=== PATIENT | male | born 1985 | race Caucasian/White ===

== ENCOUNTER 2022-08-31 06:50 | Emergency (ER) | payer MEDICAID, OTHER ==
[~2022-08-31] VITALS: Ht 185.4 cm; Wt 127.0 kg
[2022-08-31 06:50] VITALS: BP_SYST 142; BP_SYST 178; BP_DIAS 115; BP_DIAS 92
[2022-08-31] MEDS ORDERED: NACL 0.9% 1,000 ML IV ONE (07:15)
--- NOTE | 2022-08-31 07:15 | NUR ---
PT MOVED TO ER BED 6 FOR SAFETY PRECAUTIONS.
--- NOTE | 2022-08-31 07:18 | NUR ---
CALLED [facility], SPOKE WITH JAVED, CASE #[id number] STATED: NO CHARCOAL, RUNS LABS: ASPIRIN, TYLENOL, ALCOHOL AND DO EKG. PT NEEDS MASTER [employer] FOR 6 HRS. MONITOR FOR DROWSINESS AND HYPOTENSION. EKG: MONITOR FOR QT PROLONGATION. SEIZURE PRECAUTIONS MONITOR AND PROVIDE SUPPORITIVE CARE. DR MTZ AWARE
--- NOTE | 2022-08-31 07:39 | NUR ---
37 Y/O MALE BIBA FROM [facility] C/O SI. PT REPORTS TAKING 5 PILLS OF 300MG OF SEROQUEL APPROX 1 HR PRIOR TO ARRIVAL ALONG WITH 1/2 LITER OF VODKA LAST NIGHT/THIS MORNING. PT REPORTS "I TRIED TO KILL MYSELF", PT STATES "I FEEL LIKE IM LOOSING IT, I CANT GET ANYTHING IN ORDER". PT REPORTS PREVIOUS SI ATTEMPTS, OVERDOSE ON PILLS AND SELF INFLICTED CUT DAVILA TO L FOREARM. PT REPORTS PREVIOUS 5150 HOLDS AND PREVIOUS PSYCH HOSPITALIZATION X6 MONTHS IN [place]. PT DENIES ANY PAIN BUT C/O GENERALIZED WEAKNESS AND DIZZINESS. PT PRESENTS DROWSY WITH SLURRED SPEECH. PT REPORTS HI, DENIES PLAN/SPECIFICS. DENIES AH/VH. PT A/O X4 WITH EVEN AND UNLABORED RESPIRATIONS. PT IN GOWN, ON CARDIAC/O2 MONITOR. SZ/SI PRECAUTIONS IN PLACE. PMH:PTSD, TBI (2018), DEPRESSION, ANXIETY NKDA
[2022-08-31 07:54] LABS: ALBUMIN 3.4 g/dL (3.4-5.0); ANION GAP 12.5 (8-16); ASPARTATE AMINOTRANSFERASE 26 U/L (15-37); CARBON DIOXIDE 22.1 mmol/L (21-32); CHLORIDE 103 mmol/L (98-107); CREATININE 1.1 mg/dL (0.6-1.3); GFR ARICAN-AMERICAN 96 mL/min (>90); GLUCOSE 136 mg/dL (74-106); POTASSIUM 3.6 mmol/L (3.5-5.1); SALICYLATE 4.1 mg/dL (2.8-20.0); SODIUM SERUM 134 mmol/L (136-145); TOTAL BILIRUBIN 0.4 mg/dL (0.0-1.0); UREA NITROGEN, BLOOD 10 mg/dL (7-18)
[2022-08-31 08:01] LABS: ACETAMINOPHEN < 0.5 ug/ml (10-30); BASOPHILS # (AUTO) 0.1 K/uL (0.00-0.22); BASOPHILS % (AUTO) 0.9 % (0.0-2.0); EOSINOPHILS # (AUTO) 0.3 K/uL (0-0.4); EOSINOPHILS % (AUTO) 3.8 % (0.0-4.0); HEMATOCRIT 42.9 % (36-52); HEMOGLOBIN 14.3 g/dL (12.0-18.0); LYMPHOCYTES # (AUTO) 2.8 K/uL (2.0-11.5); LYMPHOCYTES % (AUTO) 35.1 % (20.5-51.1); MEAN CORPUSCULAR HEMOGLOBIN 32 pg (27-31); MEAN CORPUSCULAR HGB CONC 33 g/dL (33-37); MEAN CORPUSCULAR VOLUME 94.8 fL (80-94); MONOCYTES # (AUTO) 0.6 K/uL (0.8-1.0); MONOCYTES % (AUTO) 7.4 % (1.7-9.3); NEUTROPHILS # (AUTO) 4.2 K/uL (1.8-7.7); NEUTROPHILS % (AUTO) 52.8 % (42.2-75.2); PLATELET COUNT (AUTO) 279 K/uL (140-450); RED BLOOD CELL COUNT(AUTO) 4.53 MIL/uL (4.20-6.10); RED CELL DISTRIBUTION WIDTH 14.2 % (11.6-13.7); WHITE BLOOD COUNT (AUTO) 7.9 K/uL (4.8-10.8)
--- NOTE | 2022-08-31 08:25 | NUR ---
PT UNABLE TO PROVIDE A URINE SAMPLE AT THIS TIME, URINAL PROVIDED.
--- NOTE | 2022-08-31 09:13 | NUR ---
PT AMBULATED TO RESTROOM WITH STEADY GAIT. URINE SAMPLE COLLECTED AND WALKED TO LAB.
[2022-08-31 09:52] LABS: APPEARANCE,URINE CLEAR (CLEAR); BILIRUBIN,URINE NEGATIVE (NEGATIVE); BLOOD, URINE NEGATIVE (NEGATIVE); COLOR,URINE YELLOW (YELLOW); LEUKOCYTE ESTERASE ,URINE NEGATIVE (NEGATIVE); NITRITE, URINE NEGATIVE (NEGATIVE); UGLUCOSE NEGATIVE (NEGATIVE)
[2022-08-31 10:07] LABS: BARBITURATE, URINE NEGATIVE ng/ml (NEG <=200); BENZODIAZEPINE, URINE NEGATIVE ng/mL (NEG <=200); CANNABINOID, URINE POSITIVE ng/mL (NEG <=50); COCAINE, URINE NEGATIVE ng/mL (NEG <=300); OPIATE, URINE NEGATIVE ng/mL (NEG <=2000); PHENCYCLIDINE SCREEN,URINE NEGATIVE ng/mL (NEG <=25)
--- NOTE | 2022-08-31 11:01 | NUR ---
PT MEDICALLY CLEARED BY DR MTZ
--- NOTE | 2022-08-31 11:17 | NUR ---
PT PROVIDED WITH LUNCH TRAY. PT EATING QUIETLY AT THIS TIME.
--- NOTE | 2022-08-31 11:18 | NUR ---
REPORT GIVEN TO SOCRATES FERNANDEZ. TRANSFER OF CARE AT THIS TIME
--- NOTE | 2022-08-31 12:15 | NUR ---
PATIENT SPEAKING WITH DR. BRUNO BEDSIDE VIA TELEPSYCH
--- NOTE | 2022-08-31 12:25 | NUR ---
DR. BRUNO SUGGESTING PATIENT BE PLACED ON 5150 HOLD, MARIO ALBERTO AZAR CALLED TO HAVE OFFICER COME OUT TO EVALUATE PATIENT. DISPATCH STATED OFFICER WILL COME WHEN AVAILABLE
--- NOTE | 2022-08-31 15:03 | NUR ---
RECEIVED CALL FROM FELICIA FROM [facility] PT IS MEDICALLY CLEARED FROM THEIR STAND POINT.
--- NOTE | 2022-08-31 16:30 | NUR ---
PATIENT PROVIDED WITH LUNCH TRAY, SITTING UP IN BED EATING. ALL NEEDS MET AT THIS TIME.
--- NOTE | 2022-08-31 17:12 | NUR ---
Patient to be transferred to [facility]. Is being transferred due to PSYCH UNIT. Receiving facility has accepting physician and available space. ER physician has signed transfer form. Patient or responsible alliance party has agreed to transfer and signed form. Patient belongings inventoried and will be sent with patient. Copy of nursing notes, lab reports, EKG, Physicians Orders and X-rays to be sent with patient. Report called to [facility] at receiving facility. [facility] ambulance service has been called for transfer. ETA is 1730.
[2022-08-31 17:13] VITALS: BP 122/78
--- NOTE | 2022-08-31 17:29 | NUR ---
IV removed, catheter intact and site benign. Applied folded 4x4 gauze and tape to stop bleeding.
--- NOTE | 2022-08-31 17:31 | NUR ---
[facility] AT BEDSIDE FOR TRANSPORT
== END 2022-08-31 17:31 ==
LOC: MED 06:50
DX: T43.592A Poisoning by other antipsychotics and neuroleptics, intentional self-harm, initial encounter (principal); Z20.822 Contact with and (suspected) exposure to COVID-19; F10.129 Alcohol abuse with intoxication, unspecified; R47.81 Slurred speech; F43.10 Post-traumatic stress disorder, unspecified; Y92.89 Other specified places as the place of occurrence of the external cause
CPT/HCPCS: 36415; 80053; 80305; 81003; 85025; 87635; 93005; 96360; 99291; C9803; G0480; G0482